=== PATIENT | male | born 1995 | race Two or more races ===

== ENCOUNTER 2017-11-09 11:55 | Emergency (ER) | payer MEDICAID, OTHER ==
[2017-11-09 12:06] VITALS: BP 122/61
--- NOTE | 2017-11-09 12:29 | UC ---
Eye Complaint HPI - HPI Summary HPI Summary: Patient presents with an unremarkable past medical history. He presents today with complaints of right eye itching, and he states he rubbed it alot yesterday , today he presents with right eye upper lid swelling. He denies any eye pain with movement, or visual changes. He denies any injury or trauma, and denies foreign body sensation. - History of Current Complaint Chief Complaint: UCEye Stated Complaint: EYE COMPLAINT Time Seen by Provider: 11/09/17 12:15 Hx Obtained From: Patient Onset/Duration: Gradual Onset, Lasting Days Timing: Constant Severity Initially: Mild Severity Currently: Mild Pain Intensity: 4 Aggravating Factor(s): Other - rubbing hid eye Alleviating Factor(s): Other - tea bag application Associated Signs And Symptoms: Positive: Swelling - Risk Factors Penetrating Injury Risk Factor: Negative Globe Rupture Risk Factors: Negative Acute Glaucoma Risk Factors: Negative Optic Artery Occlusion Risk Factors: Negative - Allergies/Home Medications Allergies/Adverse Reactions: Allergies Allergy/AdvReac Type Severity Reaction Status Date / Time No Known Allergies Allergy Verified 11/09/17 12:06 Home Medications: Home Medications diphenhydrAMINE HCl [Benadryl Allergy] 50 mg PO 11/09/17 [History] PMH/Surg Hx/FS Hx/Imm Hx Previously Healthy: Yes - Surgical History Surgical History: None - Family History Known Family History: Negative: Cardiac Disease, Hypertension - Social History Lives: With Family Alcohol Use: Occasionally Substance Use Type: None Smoking Status (MU): Light Every Day Tobacco Smoker Review of Systems Constitutional: Negative Skin: Negative Eyes: Negative, Eye Redness - right upper eye lid swelling ENT: Negative Respiratory: Negative Cardiovascular: Negative Gastrointestinal: Negative Genitourinary: Negative Motor: Negative Neurovascular: Negative Musculoskeletal: Negative Neurological: Negative Psychological: Negative Is Patient Immunocompromised?: No All Other Systems Reviewed And Are Negative: Yes Physical Exam Triage Information Reviewed: Yes Appearance: Well-Appearing Vital Signs: Initial Vital Signs Temp 99.0 F 11/09/17 12:03 Pulse 84 11/09/17 12:03 Resp 18 11/09/17 12:03 BP 122/61 11/09/17 12:03 Pulse Ox 100 11/09/17 12:03 Vital Signs Reviewed: Yes Eyes: Positive: Other: - right upper eye lid mild swelling, no drainage, or pain. ENT Exam: Normal Dental Exam: Normal Neck exam: Normal Neck: Positive: 1 Respiratory Exam: Normal Cardiovascular Exam: Normal Abdominal Exam: Normal Musculoskeletal Exam: Normal Neurological Exam: Normal Skin Exam: Normal Eye Complaint Course/Dx - Course Course Of Treatment: Patient presents with swelling to the right upper eye lid that occurred after he had been rubbing his eye yesterday due to eye itching. He now has traumatic swelling and mild erythema of the lateral sclera. He has had no pain or change in vision. I do not suspect ocular shinges given his symptoms and clinical findings. I am going to referr him to hospital laboratory technician per his request for annular allergy symtpoms. He was given erythromycin opth ointment to apply tid to the right eye for 5 days, and if referred to Dr. Cheng. He verbalized understanding of and in agreement with the discharge plan. - Differential Dx/Diagnosis Differential Diagnosis/HQI/PQRI: Conjunctivitis Provider Diagnoses: conjunctivitis Discharge - Sign-Out/Discharge Documenting (check all that apply): Patient Departure All imaging exams completed and their final reports reviewed: No Studies - Discharge Plan Condition: Stable Disposition: HOME Prescriptions: Erythromycin OPTH OINT* [Erythromycin 0.5% OPTH OINT*] 1 applic RIGHT EYE TID 5 Days #1 ophth.oint Patient Education Materials: Conjunctivitis (ED), Allergies (ED) Referrals: No Primary Care Phys,NOPCP [Primary Care Provider] - Oscar Tsai MD [Medical Doctor] - Federico Bucio MD [Medical Doctor] - - Billing Disposition and Condition Condition: STABLE Disposition: Home
== END 2017-11-09 12:29 | disposition home or self-care (01) ==
LOC: UCEAST 11:55
DX: H10.31 Unspecified acute conjunctivitis, right eye (principal); H02.841 Edema of right upper eyelid; F17.200 Nicotine dependence, unspecified, uncomplicated
CPT/HCPCS: 99202; G0463

== ENCOUNTER 2018-11-23 23:22 | Emergency (ER) | payer OTHER ==
[2018-11-24] MEDS ORDERED: Ibuprofen TAB* 600 MG PO ONE (00:32)
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
[2018-11-24 01:18] VITALS: BP 99/68
== END 2018-11-24 01:17 | disposition home or self-care (01) ==
LOC: ED 23:22
DX: M77.9 Enthesopathy, unspecified (principal); J45.909 Unspecified asthma, uncomplicated; F17.200 Nicotine dependence, unspecified, uncomplicated
CPT/HCPCS: 99282

== ENCOUNTER 2019-02-12 15:58 | Emergency (ER) | payer SELFPAY ==
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
[2019-02-12] MEDS ORDERED: Lidocaine 2% VISCOUS* 15 ML UDC PO ONE (17:39)
[2019-02-12 18:32] LABS: Rapid Strep Molecular Negative (Negative)
[2019-02-12] MEDS ORDERED: Amoxicillin PO (*) 250 MG CAP PO ONE (18:33)
[2019-02-12 18:36] LABS: Influenza A Molecular NEGATIVE (Negative); Influenza B Molecular NEGATIVE (Negative)
[2019-02-12 18:54] VITALS: BP 124/76
== END 2019-02-12 18:53 | disposition home or self-care (01) ==
LOC: ED 15:58
DX: J02.9 Acute pharyngitis, unspecified (principal); F17.200 Nicotine dependence, unspecified, uncomplicated
CPT/HCPCS: 87651; 99282; A9270-GY